=== PATIENT | female | born 1955 | race Caucasian/White ===

== ENCOUNTER 2025-04-24 20:28 | Inpatient (IN) | payer MEDICARE, OTHER ==
[~2025-04-24] VITALS: Ht 170.2 cm; Wt 68.3 kg
[2025-04-24 20:40] VITALS: PULSE 77; RESP 18; O2SAT 96
--- NOTE | 2025-04-24 20:44 | ECG ---
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
--- NOTE | 2025-04-24 20:47 | ED.PDOC ---
HPI (NEURO) HPI Comments HPI: Vitals on scene Temperature: 97.6 Respiratory rate:18 SpO2:96% RA Heart rate:40 Blood pressure:132/80 Past Medical History: Hypothyroidism, osteoporosis, GERD Past Surgical History: Hysterectomy, bilateral oophorectomy, appendectomy, hemorrhoidectomy abdominal plasty, mastopexy, left knee surgery, cholecystect nasreen, left hip surgery, right knee surgery, cardiac ablation, right knee surgery, left foot surgery, total right knee replacement Social History: Denies any Regis: syncope HPI: Poor Historian. Past Medical History: Past Surgical History: REVIEW OF SYSTEMS: CONSTITUTIONAL: Denies acute: fever, diaphoresis, chills, HEAD: Denies acute: headache, photophobia Eyes: Denies acute: Double vision, vision loss, eye pain, eye discharge. EARS: Denies acute: tinnitus, hearing loss, ear discharge, ear pain, THROAT: Denies acute: sore throat, swelling, difficulty swallowing , pain with swallowing, change in voice. NECK: Denies acute: neck pain, neck swelling, stiff neck. HEART: Denies acute : chest pain, palpitations, LUNGS: Denies acute: SOB, wheezing, cough, hemoptysis ABDOMEN: Denies acute: abdominal pain, Nausea, Vomiting, diarrhea, melena , hematemesis, hematochezia SKIN: Denies acute: rash, redness, lesions, itchiness. EXTREMITIES: Denies acute: calf pain, numbness, tingling, weakness, denies pain in extremity. Denies acute: Low back pain. Neuro: Denies acute: focal neurological deficit, motor or sensory focal neurological deficit, tremors, seizure like activity, confusion, , change in mental status, loss of bowel or bladder function, cauda equina like symptoms. : Denies acute: dysuria, hematuria, flank pain, increase in urinary frequency. PSYCH: Denies acute: hallucination, suicidal ideation, homicidal ideation. FEMALE: Denies acute: abnormal vaginal bleeding, foul odor, unusual discharge. PHYSICAL EXAM: General: ----mild----acute distress, awake and alert. Head: normocephalic, atraumatic. No raccoon's eyes, no brand sign. Neck: supple, trachea is midline, no swelling. Throat: Normal phonation. Eyes:, no erythema, no purulent discharge, no proptosis, no icterus. Heart: regular rate, regular rhythm, no significant murmur appreciated. Lungs: no apparent respiratory distress, Able to speak in full sentences. No wheezing, no rhonchi, no crackles. No stridors Clear to auscultation bilaterally. Abdomen: non tender to palpation, non distended, soft, no guarding, no rebound, + bowel sounds. Neuro: Awake, Alert, oriented to name, self, situation, follows commands GCS=15. Speech is normal. Skin: no petechia, no purpura, no cyanosis, non-pale, not jaundice. Lower extremities: --no - Pitting edema no deformity, no focal swelling, no calf TTP. Makes eye contact. moves all four extremities. Face: no apparent facial droop. ED COURSE: DISCLAIMER: This medical document was created using an electronic medical record system with voice recognition software and computerized dictation system. Although this document has been carefully reviewed, there might still be some phonetic and typographical errors. Occasional wrong-word or "sound-alike" substitutions may have occurred due to the inherent limitations of voice recognition software. These areas are purely typographical due to imperfections of the software programs and do not reflect any compromise in the patient's medical care. Please read the chart carefully and recognize, using context, where these substitutions have occurred. 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 Was a procedure done?: No X-Ray, Labs, Meds, VS Vital Signs Date Time Temp Pulse Resp B/P (MAP) Pulse Ox O2 Delivery O2 Flow Rate FiO2 04/24/25 20:31 79 Lab Test 04/24/25 20:45 Range/Units White Blood Count Pending Red Blood Count Pending Hemoglobin Pending Hematocrit Pending Mean Corpuscular Volume Pending Mean Corpuscular Hemoglobin Pending Mean Corpuscular Hemoglobin Concent Pending Red Cell Distribution Width Pending Platelet Count Pending Mean Platelet Volume Pending Neutrophils (%) (Auto) Pending Lymphocytes (%) (Auto) Pending Monocytes (%) (Auto) Pending Basophils (%) (Auto) Pending Neutrophils # (Auto) Pending Lymphocytes # (Auto) Pending Monocytes # (Auto) Pending Sodium Level Pending Potassium Level Pending Chloride Level Pending Carbon Dioxide Level Pending Anion Gap Pending Blood Urea Nitrogen Pending Creatinine Pending Glomerular Filtration Rate Calc Pending BUN/Creatinine Ratio Pending Serum Glucose Pending Lactic Acid Level Pending Calcium Level Pending Total Bilirubin Pending Aspartate Amino Transferase (AST) Pending Alanine Aminotransferase (ALT) Pending Alkaline Phosphatase Pending Troponin I High Sensitivity Pending Total Protein Pending Albumin Pending Time of 1ST Reevaluation: 21:00 Reevaluation 1ST: Unchanged Patient Education/Counseling: Diagnosis, Treatment, Prognosis Family Education/Counseling: No Family Present Departure 1 Departure Time of Disposition: 20:55 Impression: Primary Impression: Syncope and collapse Disposition: 01 HOME / SELF CARE / HOMELESS Condition: Stable Discharged With: Self Critical Care Note Critical Care Time?: No I personally scribed for CARMELITA BARROW DO ([email or web address]) on 04/24/25 at 20:47. Electronically submitted by Shiv Ruiz ([email or web address]). I personally scribed for CARMELITA BARROW DO ([email or web address]) on 04/24/25 at 20:55. Electronically submitted by Shiv Ruiz ([email or web address]). CARMELITA BARROW DO Apr 24, 2025 20:47
[2025-04-24 21:00] LABS: Hematocrit 40.9 % (36.0-46.0); Hemoglobin 13.7 g/dL (12.2-16.2); Mean Corpuscular Hemoglobin 32.2 pg (28.0-32.0); Mean Corpuscular Volume 95.8 fL (80.0-100.0); Nucleated Red Blood Cells % 0.0 %
[2025-04-24] MEDS: SODIUM CHLORIDE 0.9% 1,000 ML IV ONE (21:12)
--- NOTE | 2025-04-24 21:16 | DVH ---
CHEST RADIOGRAPH INDICATION: syncope TECHNIQUE: Single frontal view of the chest was obtained COMPARISON: None FINDINGS: Lungs and pleural spaces are clear. Cardiac silhouette and ricky are within normal limits. Bones and soft tissues demonstrate no significant abnormality. IMPRESSION: No acute disease.
[2025-04-24 21:17] LABS: Alanine Aminotransferase 21 U/L (7-40); Albumin 4.3 g/dL (3.2-4.8); Alkaline Phosphatase 65 U/L (46-116); Anion Gap 12 (5-15); BUN/Creatinine Ratio 32.2 (10.0-20.0); Bilirubin, Total 0.6 mg/dL (0.2-1.0); Calcium 9.3 mg/dL (8.7-10.4); Carbon Dioxide 24 mmol/L (20-31); Chloride 105 mmol/L (98-107); Potassium 4.3 mmol/L (3.5-5.1); Sodium 141 mmol/L (136-145); Total Protein 7.0 g/dL (5.7-8.2)
[2025-04-24 21:35] LABS: Blood Urea Nitrogen 28 mg/dL (9-23); Glucose 109 mg/dL (74-106)
[2025-04-24 22:20] LABS: Urine Protein, UAD Negative (Negative)
[2025-04-25] MEDS: CALCIUM W/VIT D (600MG/400IU) TAB PO ONE (00:28)
[2025-04-25] MEDS: ASPirin-EC 81 mg tab PO ONE (00:28)
--- NOTE | 2025-04-25 01:33 | DVHHPRES ---
History of Present Illness Resident Creating Document: SHIRA CASH RESIDENT History of Present Illness Maryanne Stacy is a 70-year-old female with past medical history of AFlutter S/P ablation in 2019, hypothyroidism, genital herpes, GERD, hiatal hernia, osteoporosis, atrophic vaginitis who was brought to the hospital by paramedics following an episode of syncope. Patient states that [facility] when she blacked out and fell down. She reports that she did not hit her head. She reports of multiple episodes of syncope since her 20s. She reports of 6 syncopal episodes this past year, usually while standing up from a sitting position. patient has been on a weight loss diet, is a vegetarian and is on phentermine for the past 6 months. She reports of no tongue biting or confusion after the episode. PMHx:AFlutter S/P ablation in 2019, hypothyroidism, genital herpes, GERD, hiatal hernia, osteoporosis, atrophic vaginitis PSHx: Hysterectomy, appendectomy, hemorrhoidectomy, hip and knee arthroscopy, cardiac ablation Family history: nonrelevant Social history: denies smoking, alcohol, drug use Home medication: Synthroid, vaginal estrogen, valacyclovir, alendronate, phentermine, pantoprazole, aspirin Allergic history: no known allergies Review of Systems Review of Systems General: patient denies fever, fatigue, weaknes, sweating, any recent changes in appetite and weight HEENT: No headaches, visiual changes, hearing loss, tinnitus, nasal congestion and discharge, and sore throat. Cardiovascular: Denies chest pain, palpitations, dyspnea on exertion, orthopnea, or claudication. Respiratory: No cough, and wheezing. Gastrointestinal: Denies nausea, vomiting, dysphagia, odynophagia, heartburn, abdominal pain, flatulence, bloating, diarrhea, constipation, change in stool, or blood in stool. Genitourinary: No dysuria, hematuria, discharge, frequency, urgency, nocturia, incontinence, and urinary retention. Endocrine: No heat or cold intolerance, polydipsia, polyuria, and polyphagia. Neurological: No dizziness, extremity weakness and numbness, tremors, gait disturbance, seizures, and memory impairment. Psychiatric: Denies depression, anxiety,or insomnia. Musculoskeletal: Denies neck pain, stiffness and swelling, back pain, muscle weakness, joint pain, stiffness, swelling, or limited range of motion. Skin: No rashes, itching, skin lesion, changes in hair, nail, skin texture and breast. Hematologic/Lymphatic: Denies easy bruising, bleeding tendencies, or lymph node enlargement. Allergies: Coded Allergies: Iodinated Diagnostic Agents (Verified Allergy, Unknown, 04/25/25) Penicillins (Verified Allergy, Unknown, 04/25/25) Medications Current Medications Medications Dose Ordered Sig/Andreas Route Start Time Stop Time Status Last Admin Dose Admin Enoxaparin Sodium 40 mg DAILY SC 04/25/25 10:00 Levothyroxine Sodium 88 mcg QAM@0600 PO 04/25/25 06:00 Pantoprazole Sodium 40 mg DAILY IV 04/25/25 10:00 Exam Vital Signs Vital Signs Date Time Temp Pulse Resp B/P (MAP) Pulse Ox O2 Delivery O2 Flow Rate FiO2 04/24/25 21:09 77 132/57 81 136/68 85 147/70 04/24/25 21:06 97.4 18 98 97.4 04/24/25 20:40 Room Air* 0 21 Exam General Appearance: Alert, Oriented X3, Cooperative, No acute distress HEENT: Atraumatic, PERRLA, EOMI, Mucous membrane moist/pink Respiratory: Clear to auscultation, Normal air movement Cardiovascular: Regular rate, Normal S1, Normal S2, No murmurs, no chest wall tenderness Abdominal: Normal bowel sounds, Soft, No tenderness, No hepatospenomegaly, No masses Extremities: No clubbing, No cyanosis, No edema, Normal pulses, No tenderness/ swelling Skin: No rashes, No breakdown, No significant lesion Neuro: Normal gait, Normal speech, Strength at 5/5 X4 ext, Normal tone, Sensation intact, Cranial nerves 3-12 NL, Reflexes 2+ Psych/Mental Status: Mental status NL, Mood NL Labs/Xrays Labs Test 04/24/25 23:48 04/24/25 21:51 04/24/25 20:45 Range/Units Troponin I High Sensitivity 4 </=34 ng/L Urine Color Colorless Yellow Urine Clarity Clear Clear Urine pH 6.5 5.0-9.0 Urine Specific [place] 1.013 1.001-1.035 Urine Protein Negative Negative Urine Ketones 1+ H Negative Urine Blood Negative Negative /uL Urine Nitrite Negative Negative Urine Bilirubin Negative Negative Urine Urobilinogen Normal Negative mg/dL Urine Leukocyte Esterase Negative Negative /uL Urine RBC 1 0 - 4 /hpf Urine Microscopic WBC 1 0-5 /HPF Urine Squamous Epithelial Cells Few <5 /hpf Urine Bacteria None seen None Seen /hpf Urine Mucus Few None Seen Urine Glucose Normal Normal mg/dL White Blood Count 4.3 L 4.4-10.8 10^3/uL Red Blood Count 4.27 4.0-5.20 10^6/uL Hemoglobin 13.7 12.2-16.2 g/dL Hematocrit 40.9 36.0-46.0 % Mean Corpuscular Volume 95.8 80.0-100.0 fL Mean Corpuscular Hemoglobin 32.2 H 28.0-32.0 pg Mean Corpuscular Hemoglobin Concent 33.6 32.0-36.0 g/dL Red Cell Distribution Width 13.6 11.8-14.3 % Platelet Count 284 140-450 10^3/uL Mean Platelet Volume 7.0 6.9-10.8 fL Neutrophils (%) (Auto) 49.0 37.0-80.0 % Lymphocytes (%) (Auto) 35.1 10.0-50.0 % Monocytes (%) (Auto) 10.3 0.0-12.0 % Eosinophils (%) (Auto) 4.6 0.0-7.0 % Basophils (%) (Auto) 1.0 0.0-2.0 % Neutrophils # (Auto) 2.1 1.6-8.6 10 ^3/uL Lymphocytes # (Auto) 1.5 0.4-5.4 10 ^3/uL Monocytes # (Auto) 0.4 0-1.3 10 ^3/uL Eosinophils # (Auto) 0.2 0-0.8 10 ^3/uL Basophils # (Auto) 0 0-0.2 10 ^3/uL Nucleated Red Blood Cells 0.0 % Sodium Level 141 136-145 mmol/L Potassium Level 4.3 3.5-5.1 mmol/L Chloride Level 105 98-107 mmol/L Carbon Dioxide Level 24 20-31 mmol/L Anion Gap 12 5-15 Blood Urea Nitrogen 28 H 9-23 mg/dL Creatinine 0.87 0.550-1.02 mg/dL Glomerular Filtration Rate Calc 71 >90 mL/min BUN/Creatinine Ratio 32.2 H 10.0-20.0 Serum Glucose 109 H 74-106 mg/dL Lactic Acid Level 1.2 0.4-2.0 mmol/L Calcium Level 9.3 8.7-10.4 mg/dL Total Bilirubin 0.6 0.2-1.0 mg/dL Aspartate Amino Transferase (AST) 28 13-40 U/L Alanine Aminotransferase (ALT) 21 7-40 U/L Alkaline Phosphatase 65 46-116 U/L Total Protein 7.0 5.7-8.2 g/dL Albumin 4.3 3.2-4.8 g/dL SEPSIS Sepsis Screen Date sepsis recognized/suspect: Apr 24, 2025 Time Sepsis recognized/suspect: 2124 Recent Procedure: No On Antibiotic Therapy: No Respiratory Rate >20: No Heart Rate >90: No Temp<36 C (96.8 F) or >38.3 C: No SBP <90 or MAP <65 mmHG: No New Acute Mental Status Change: No Is the patient on CPAP, BIPAP,: No Physician Orders Skid Wrapper (04/24/25 ) Chest Portable (04/24/25 20:35) Orthostatic Vital Signs (04/24/25 ) Admit (04/24/25 23:44) Oxygen By Nasal Cannula (04/24/25 23:44) Stat Ekg For Chest Pain (04/24/25 23:44) Notify Md Of Changes From Base (04/24/25 23:44) Soil Conservation Teacher For 24 Hours (04/24/25 23:44) Emergency Dysrhythmia Protocol (04/24/25 23:44) Rhythm Strips Once Every Shift (04/24/25 23:44) Folate (Folic Acid) (04/24/25 23:52) Vitamin B12 (04/24/25 23:52) Orthostatic Vital Signs (04/24/25 ) Echo 2d Mode Cardiac Dop (04/24/25 23:52) Regular Diet (04/25/25 Breakfast) Enoxaparin Sodium (Lovenox) (04/25/25 10:00) Levothyroxine Tablet (Synthroid Tablet) (04/25/25 06:00) Pantoprazole (Protonix) (04/25/25 10:00) Hemoglobin A1c (04/25/25 00:01) Thyroid Stimulating Hormone (04/25/25 00:01) Complete Blood Count (04/25/25 04:00) Comprehensive Metabolic Panel (04/25/25 04:00) Lipid Panel (04/25/25 04:00) Vital Signs Date Time Temp Pulse Resp B/P (MAP) Pulse Ox O2 Delivery O2 Flow Rate FiO2 04/24/25 21:09 77 132/57 81 136/68 85 147/70 04/24/25 21:06 97.4 77 18 132/77 (95) 98 97.4 81 136/68 (90) 85 147/70 (95) 04/24/25 20:40 77 18 96 Room Air* 0 21 04/24/25 20:31 79 04/24/25 20:30 97.6 84 18 155/80 96 97.6 Laboratory Tests Test 04/24/25 20:45 Lactic Acid Level 1.2 mmol/L (0.4-2.0) White Blood Count 4.3 10^3/uL (4.4-10.8) L Medications Medications Dose Ordered Sig/Andreas Route Start Time Stop Time Status Last Admin Dose Admin Aspirin 81 mg ONCE ONCE PO 04/25/25 00:00 04/25/25 00:19 DC 04/25/25 00:28 81 MG Calcium/Vitamin D 1 tab ONCE ONCE PO 04/25/25 00:00 04/25/25 00:19 DC 04/25/25 00:28 1 TAB Sodium Chloride 1,000 ml @ 1,000 mls/hr Q1H ONCE IV 04/24/25 20:45 04/24/25 21:44 DC 04/24/25 21:12 1,000 MLS/HR Assessment/Plan Assessment/Plan Assessment and plan Syncope, orthostatic/reflux History of atrial flutter status post ablation Orthostatic vital signs Echo TSH, magnesium Telemetry admit Cardiology consult as per primary team IV fluids CT head Hypothyroidism Continue Synthroid Follow TSH Osteoporosis Continue calcium Held alendronate Genital herpes Continue valacyclovir GERD Hiatal hernia IV Protonix Atrophic vaginitis Continue vaginal estrogen PUD prophylaxis: protonix 40mg DVT prophylaxis: Levonox 40mg Barriers to discharge: Medical diagnosis and management in progress. Patient lives with family. Independent for ADL. PCP: Dr. Otero Specialist Relevent To Admission: Cardiology Case discussed with Dr. Reyes. Code Status: Full Code. Complex patient care discussion needed. Spend total 35 minutes for bedside assessment, case discussion and management. Plan discussed with: Patient My Orders Orders - SHIRA CASH Procedure Category Date Status Time Folate (Folic Acid) LAB 04/24/25 Logged 23:52 Vitamin B12 LAB 04/24/25 Logged 23:52 Orthostatic Vital ED NURSING 04/24/25 Transmitted Signs Echo 2d Mode Cardiac US 04/24/25 Logged DOP 23:52 Regular Diet DIET 04/25/25 Transmitted Breakfast Enoxaparin Sodium PHA 04/25/25 In Process (Lovenox) 10:00 Levothyroxine Tablet PHA 04/25/25 In Process (Synthroid Tablet) 06:00 Pantoprazole PHA 04/25/25 In Process (Protonix) 10:00 Hemoglobin A1c LAB 04/25/25 Logged 00:01 Thyroid Stimulating LAB 04/25/25 Logged Hormone 00:01 Complete Blood Count LAB 04/25/25 Logged 04:00 Comprehensive LAB 04/25/25 Logged Metabolic Panel 04:00 Lipid Panel LAB 04/25/25 Logged 04:00 Visit Coding STANDARD RES Billing Provider: CRISSY REYES MD Date of Service if different f: Apr 24, 2025 Common Visit Codes: [id number] INP/OBS CARE (HIGH) Secondary Visit Codes: [id number] CARE PLAN 30 MINUTES SHIRA CASH Apr 25, 2025 01:32
[2025-04-25] MEDS: ALPRAZolam 0.5 MG TAB PO ONE (01:50)
[2025-04-25] MEDS: SODIUM CHLORIDE 0.9% 500 ML IV ONE (02:46)
--- NOTE | 2025-04-25 02:53 | DVH ---
EXAM: CT HEAD WITHOUT CONTRAST INDICATION: Status post mechanical fall TECHNIQUE: CT of the head without intravenous contrast. Radiation Dose : 1. Head: CT Dose: CTDI volume is 49.51 mGy. Dose-length product is 793.88 mGy*cm The dose indicators for CT are the volume Computed Tomography (CT) Dose Index (CTDIvol) and the Dose Length Product (DLP), and are measured in units of mGy and mGy-cm, respectively. These indicators are not patient dose, but values generated from the CT scanner acquisition factors. The report includes radiation exposure data for exposures received during this examination. COMPARISON: None FINDINGS: There is no evidence of acute intracranial hemorrhage, extra-axial collection, mass effect, midline shift, herniation or hydrocephalus. The ventricles, sulci and cisterns are age appropriate. The vanegas-white differentiation is intact. Patchy periventricular and subcortical white matter hypoattenuation is nonspecific but may be related to small vessel ischemic disease. The visualized paranasal sinuses and mastoid air cells are clear. The surrounding soft tissues and osseous structures are unremarkable. IMPRESSION: 1. No acute intracranial abnormality. Radiation optimization: All CT scans at this facility use at least one of these dose optimization techniques: automated exposure control mA and/or kV adjustment per patient size (includes targeted exams where dose is matched to clinical indication) or iterative reconstruction.
[2025-04-25] MEDS ORDERED: LEVO-177 PO (04:38)
[2025-04-25] MEDS ORDERED: ALEN70TA74 PO (04:38)
[2025-04-25] MEDS ORDERED: ESTR0.1C5 VG (04:38)
[2025-04-25] MEDS ORDERED: ALPR0.5T8 PO (04:39)
[2025-04-25] MEDS ORDERED: ASPI-498 PO (04:39)
[2025-04-25] MEDS ORDERED: PANT40TA57 PO (04:39)
[2025-04-25] MEDS ORDERED: VALA-30 PO (04:39)
[2025-04-25] MEDS ORDERED: [UNRECOGNIZED DRUG - CODE] PO (04:39)
[2025-04-25 05:00] VITALS: BP 136/74; PULSE 80; RESP 16; TEMP 97.7; O2SAT 99
[2025-04-25] MEDS: LEVOTHYROXINE SODIUM 88 MCG TAB PO SCH (06:27)
[2025-04-25 08:00] VITALS: PULSE 86; RESP 16; O2SAT 97
[2025-04-25 09:00] VITALS: BP 131/69; PULSE 95; RESP 16; TEMP 97.5; O2SAT 97
[2025-04-25] MEDS: ENOXAPARIN SOD 40 MG/0.4 ML SYRINGE SC SCH (10:00)
[2025-04-25] MEDS: PANTOPRAZOLE 40 MG/10 ML VIAL INJ IV SCH (10:22)
[2025-04-25 11:36] LABS: Hematocrit 39.3 % (36.0-46.0); Hemoglobin 13.4 g/dL (12.2-16.2); Mean Corpuscular Hemoglobin 32.5 pg (28.0-32.0); Mean Corpuscular Volume 95.5 fL (80.0-100.0); Nucleated Red Blood Cells % 0.0 %
--- NOTE | 2025-04-25 11:48 | DVHINCON2 ---
Date Seen: Apr 25, [address] Hunt Reason for Consultation Syncope and history of atrial flutter History of Present Illness Patient is a 70-year-old female who was brought to the hospital via EMS after an episode of syncope. Patient reportedly was at the vet clinic with her pet, she picked up her bed and suddenly felt dizzy and her vision closing in and then blacked out and fell down. Patient did have urinary incontinence, episode was witnessed and no abnormal movements were reported no tongue bites, no postictal confusion. Patient reports to have recurrent episodes of dizziness since she was young but usually she is able to hold onto something and sit down and feels better after that but yesterday she blacked out and could not hold onto something and fell down. EMS were called and patient was reported to have heart rate of 38 beats per minute at the site and was brought to the hospital further evaluation. Last episode of syncope according with the patient was around 7 years ago. Patient does have history of atrial flutter status post ablation done in 2019, hypothyroidism, GERD, hiatal hernia, atrophic vaginitis, genital herpes. In the hospital showed sinus rhythm without any ST or T-wave changes. Troponin levels were within normal limits. 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 Past Medical History As per HPI Past Surgical History Hysterectomy, appendectomy, hemorrhoidectomy, hip and knee arthroscopy, cardiac ablation Family History: Cerebrovascular accident (CVA) G8 MOTHER FH: breast cancer G8 MOTHER FH: leukemia G8 FATHER Family History Significant family history Social History Denies smoking, alcohol, drug use Allergies: Coded Allergies: Iodinated Diagnostic Agents (Verified Allergy, Unknown, 04/25/25) Penicillins (Verified Allergy, Unknown, 04/25/25) Home Meds Reported Medications Alprazolam (Alprazolam) 0.5 Mg Tab, 1 TAB PO Q8HPRN PRN for anxiety 04/25/25 Aspirin (ASPIRIN 81) 81 Mg Tab, 81 MG PO DAILY, TAB 04/25/25 Pantoprazole Sodium Sesquihydr (Pantoprazole Sodium Dr) 40 Mg Tab, 1 TAB PO QAM 04/25/25 Phentermine HCl (Phentermine Hydrochloride) 37.5 Mg Tab, 0.25 TAB PO DAILY 04/25/25 Valacyclovir HCl (Valacyclovir Hydrochlorid) 500 Mg Tab, 1 TAB PO DAILY 04/25/25 Alendronate Sodium (Alendronate Sodium) 70 Mg Tab, 1 TAB PO QWEEKLY 04/25/25 Estradiol Vaginal (Estradiol) 0.1 Mg/Gm Cre, 0.5 GM VG QWEEKLY 04/25/25 Levothyroxine Sodium (Levothyroxine Sodium) 88 Mcg Tab, 1 TAB PO QAM 04/25/25 Current Medications Current Medications Medications (Trade) Dose Ordered Sig/Andreas Route PRN Reason Start Time Stop Time Status Last Admin Enoxaparin Sodium (Lovenox) 40 mg DAILY SC 04/25/25 10:00 Levothyroxine Sodium (Synthroid Tablet) 88 mcg QAM@0600 PO 04/25/25 06:00 04/25/25 06:27 Pantoprazole Sodium (Protonix) 40 mg DAILY IV 04/25/25 10:00 04/25/25 10:22 Review of Systems Patient seen and examined with the bedside No episode of dizziness and she has been in the hospital Denies shortness of breath, chest pain, numbness or tingling in her extremities, no motor weakness Vital Signs Vital Signs Date Time Temp Pulse Resp B/P (MAP) Pulse Ox O2 Delivery O2 Flow Rate FiO2 04/25/25 05:00 97.7 80 16 136/74 (94) 99 97.7 04/25/25 04:23 Room Air* 0 21 Physical Exam Skin - Patients skin is warm and dry. HEENT - normocephalic, atraumatic, moist mucous membranes, no scleral icterus, no conjunctival pallor. Neck - full ROM, no LAD, no JVD Pulmonary - B/L clear breath sounds without any wheezing, rales or stridor cardiovascular - regular S1,S2 with a loud S2 heard, no additional sounds or murmurs heard. peripheral pulses normal radial 2+, pedal 2+. No extremity edema GI - soft, nontender abdomen. no hepatospleenomegaly. Bowel sounds normoactive Neurological - Patient is A/O X 4 . Bilateral upper extremity strength 5/5, bilateral lower extremity strength 5/5, no facial droop, normal speech, no tremor, no sensory deficiets. Labs/Diagnostic Data Labs Test 04/24/25 23:48 04/24/25 21:51 04/24/25 20:45 Range/Units Troponin I High Sensitivity 4 </=34 ng/L Urine Color Colorless Yellow Urine Clarity Clear Clear Urine pH 6.5 5.0-9.0 Urine Specific [place] 1.013 1.001-1.035 Urine Protein Negative Negative Urine Ketones 1+ H Negative Urine Blood Negative Negative /uL Urine Nitrite Negative Negative Urine Bilirubin Negative Negative Urine Urobilinogen Normal Negative mg/dL Urine Leukocyte Esterase Negative Negative /uL Urine RBC 1 0 - 4 /hpf Urine Microscopic WBC 1 0-5 /HPF Urine Squamous Epithelial Cells Few <5 /hpf Urine Bacteria None seen None Seen /hpf Urine Mucus Few None Seen Urine Glucose Normal Normal mg/dL White Blood Count 4.3 L 4.4-10.8 10^3/uL Red Blood Count 4.27 4.0-5.20 10^6/uL Hemoglobin 13.7 12.2-16.2 g/dL Hematocrit 40.9 36.0-46.0 % Mean Corpuscular Volume 95.8 80.0-100.0 fL Mean Corpuscular Hemoglobin 32.2 H 28.0-32.0 pg Mean Corpuscular Hemoglobin Concent 33.6 32.0-36.0 g/dL Red Cell Distribution Width 13.6 11.8-14.3 % Platelet Count 284 140-450 10^3/uL Mean Platelet Volume 7.0 6.9-10.8 fL Neutrophils (%) (Auto) 49.0 37.0-80.0 % Lymphocytes (%) (Auto) 35.1 10.0-50.0 % Monocytes (%) (Auto) 10.3 0.0-12.0 % Eosinophils (%) (Auto) 4.6 0.0-7.0 % Basophils (%) (Auto) 1.0 0.0-2.0 % Neutrophils # (Auto) 2.1 1.6-8.6 10 ^3/uL Lymphocytes # (Auto) 1.5 0.4-5.4 10 ^3/uL Monocytes # (Auto) 0.4 0-1.3 10 ^3/uL Eosinophils # (Auto) 0.2 0-0.8 10 ^3/uL Basophils # (Auto) 0 0-0.2 10 ^3/uL Nucleated Red Blood Cells 0.0 % Sodium Level 141 136-145 mmol/L Potassium Level 4.3 3.5-5.1 mmol/L Chloride Level 105 98-107 mmol/L Carbon Dioxide Level 24 20-31 mmol/L Anion Gap 12 5-15 Blood Urea Nitrogen 28 H 9-23 mg/dL Creatinine 0.87 0.550-1.02 mg/dL Glomerular Filtration Rate Calc 71 >90 mL/min BUN/Creatinine Ratio 32.2 H 10.0-20.0 Serum Glucose 109 H 74-106 mg/dL Lactic Acid Level 1.2 0.4-2.0 mmol/L Calcium Level 9.3 8.7-10.4 mg/dL Total Bilirubin 0.6 0.2-1.0 mg/dL Aspartate Amino Transferase (AST) 28 13-40 U/L Alanine Aminotransferase (ALT) 21 7-40 U/L Alkaline Phosphatase 65 46-116 U/L Total Protein 7.0 5.7-8.2 g/dL Albumin 4.3 3.2-4.8 g/dL Assessment Syncope,probable POTS, rule out structural cardiac abnormality h/o atrial flutter status post ablation h/o hypothyroidism GERD, hiatal hernia Plan/Recommendation - Orthostatic vitals laying down BP 137/72, HR 77, standing after 1 min 121/75 H R 105, standing after 3 mins 126/80 HR 109 , HR after 6-7 mins of standing in 110-115, indicative of POTS, aligning with patient's h/o recurrent postural dizziness since her 20s - TSH, free T4 and total T3 within normal limits - on telemetry, few episodes of sinus tachy upto 130-140 - ECG showed sinus rhythm - echo pending - encouraged increased fluid intake atleast 2L/min, increased salt intake Goals of care discussed with the patient for over 18 minutes. Plan discussed with Dr. Casanova Plan discussed with: Patient, Other (RN) NYHA Physical activity limitations: NA Date of Service: Apr 25, 2025 Billing Provider: PAULINO CASANOVA Sr., MD Cardiology Common Codes: [id number] INP/OBS CARE (High) ROEL VICENTE RESIDENT Apr 25, 2025 11:48
[2025-04-25 11:57] LABS: Alanine Aminotransferase 20 U/L (7-40); Albumin 4.1 g/dL (3.2-4.8); Alkaline Phosphatase 62 U/L (46-116); Anion Gap 11 (5-15); BUN/Creatinine Ratio 22.1 (10.0-20.0); Blood Urea Nitrogen 15 mg/dL (9-23); Calcium 9.3 mg/dL (8.7-10.4); Carbon Dioxide 25 mmol/L (20-31); Cholesterol 130 mg/dL (< 200); HDL Cholesterol 60 mg/dL (40-59); Magnesium 2.2 mg/dL (1.6-2.6); Potassium 4.0 mmol/L (3.5-5.1); Sodium 144 mmol/L (136-145); Total Protein 6.6 g/dL (5.7-8.2); Triglycerides 36 mg/dL (< 150)
[2025-04-25 11:58] LABS: Bilirubin, Total 0.6 mg/dL (0.2-1.0)
[2025-04-25 12:02] LABS: Chloride 108 mmol/L (98-107); Glucose 116 mg/dL (74-106)
--- NOTE | 2025-04-25 15:52 | DVHPNRES ---
Progress Note Date Seen: Apr 25, 2025 Resident Creating Document: ANNIE GUILLORY RESIDENT Medical Necessity Reason Pt with a Central, PICC or Fol: No Subjective Review of Systems Maryanne Stacy is a 70-year-old female with past medical history of AFlutter S/P ablation in 2019, hypothyroidism, genital herpes, GERD, hiatal hernia, osteoporosis, atrophic vaginitis who was brought to the hospital by paramedics following an episode of syncope. Patient states that [facility] when she blacked out and fell down. She reports that she did not hit her head. She reports of multiple episodes of syncope since her 20s. She reports of 6 syncopal episodes this past year, usually while standing up from a sitting position. patient has been on a weight loss diet, is a vegetarian and is on phentermine for the past 6 months. She reports of no tongue biting or confusion after the episode. She recently had an EGD done, which revealed hiatal hernia, gastritis. Last colonoscopy was done in 2019, which was unremarkable. The patient was seen and examined at bedside this morning. She reports feeling completely fine. No new complaints reported. PMHx:AFlutter SVT, atrial flutter, S/P ablation in 2019, hypothyroidism, genital herpes, GERD, hiatal hernia, osteoporosis, atrophic vaginitis PSHx: Vaginal hysterectomy, appendectomy, hemorrhoidectomy, hip and knee arthroscopy, cardiac ablation Family history: nonrelevant Social history: denies smoking, alcohol, drug use Home medication: Synthroid, vaginal estrogen, valacyclovir, alendronate, phentermine, pantoprazole, aspirin Allergic history: no known allergies Objective vital signs Vital Sign Date Time Temp Pulse Resp B/P (MAP) Pulse Ox O2 Delivery O2 Flow Rate FiO2 04/25/25 08:00 86 04/25/25 08:00 16 97 Room Air* 0 21 04/25/25 05:00 97.7 136/74 (94) 97.7 Total Intake and Output 04/24/25 04/24/25 04/25/25 15:00 23:00 07:00 Intake Total 1000 ml 500 ml Balance 1000 ml 500 ml medications Current Medications Medications Dose Ordered Sig/Andreas Route Start Time Stop Time Status Last Admin Dose Admin Enoxaparin Sodium 40 mg DAILY SC 04/25/25 10:00 Pantoprazole Sodium 40 mg DAILY IV 04/25/25 10:00 04/25/25 10:22 40 MG Aspirin 81 mg DAILY PO 04/26/25 10:00 Levothyroxine Sodium 88 mcg QAM PO 04/26/25 07:00 Patient Own Medication 1 DAILY PO 04/26/25 10:00 Examination Pt is lying on bed General Appearance: Alert, Oriented X3, Cooperative, Mild distress HEENT: Atraumatic, Mucous membranes moist/pink Respiratory: Clear to auscultation, Normal air movement, No added sounds Cardiovascular: Regular rate, Normal S1, Normal S2, No murmurs Abdominal/ : Active bowel sounds, Soft, no distention, no tenderness Extremities: No edema, Normal pulses, No tenderness/swelling Skin: No Significant rash, except past surgical scars Neuro: Normal speech, sensorimotor deficits none Psych/Mental Status: Mental status NL, Mood NL Nurse was there as contact center associate during examination laboratory and microbiology Laboratory Tests 04/25/25 11:23 Test 04/25/25 11:23 Range/Units Serum Glucose 116 H 74-106 mg/dL Labs and/or images reviewed: Labs reviewed by me, Image(s) reviewed by me Problem List/Assessment/Plan Problem List/Assessment/Plan Syncope, orthostatic/reflux History of atrial flutter status post ablation Orthostatic vital signs negative Echo: Completed, results pending TSH: WNL, free T3 and T4 pending Telemetry admit Cardiology consult IV fluid CT head No acute intracranial abnormality. CXR:No acute disease Magnesium 2.2, potassium 4 Aspirin 81 mg ordered Hypothyroidism Continue Synthroid TSH WNL Osteoporosis Continue calcium Held alendronate Genital herpes Continue valacyclovir GERD Hiatal hernia IV Protonix Atrophic vaginitis Continue vaginal estrogen PUD prophylaxis: protonix 40mg DVT prophylaxis: Lovenox 40mg Barriers to discharge: Medical diagnosis and management in progress. Patient lives with family. Independent for ADL. PCP: Dr. Otero Specialist Relevent To Admission: Cardiology Case discussed with Dr Friend Code Status: Full Code. Complex patient care discussion needed. Spend total 35 minutes for bedside assessment, case discussion and management Plan discussed with: Patient, Daughter (RN), Other My Orders My Orders Orders - ANNIE GUILLORY RESIDENT Procedure Category Date Status Time * Cardiology Consult CONS 04/25/25 Transmitted 11:03 Aspirin Enteric PHA 04/26/25 In Process Coated Tablet 10:00 Levothyroxine Tablet PHA 04/26/25 In Process (Synthroid Tablet) 07:00 Patients Own PHA 04/26/25 In Process Medication 10:00 Patients Own PHA 04/25/25 In Process Medication 17:00 Visit Coding STANDARD RES Billing Provider: LILIANA FRIEND MD Date of Service if different f: Apr 25, 2025 Common Visit Codes: [id number] INP/OBS CARE(HIGH) ANNIE GUILLORY RESIDENT Apr 25, 2025 15:52 LILIANA FRIEND MD Apr 26, 2025 19:47
[2025-04-25 16:12] LABS: Free T4 (Free Thyroxine) 1.46 ng/dL (0.89-1.76)
[2025-04-25] MEDS: VALACYCLOVIR 500 MG TABLET PO ONE (17:27)
[2025-04-25 18:37] VITALS: BP 143/71; PULSE 80; RESP 16; TEMP 99.1; O2SAT 97
[2025-04-25 20:00] VITALS: PULSE 74; RESP 16; O2SAT 97
[2025-04-25 21:00] VITALS: BP 117/73; PULSE 93; RESP 18; TEMP 97.8; O2SAT 99
[2025-04-26 01:00] VITALS: BP 123/68; PULSE 78; RESP 16; TEMP 98.1; O2SAT 96
[2025-04-26] MEDS: ACETAMINOPHEN 325 MG TAB PO ONE (04:57)
[2025-04-26 05:00] VITALS: BP 121/74; PULSE 93; RESP 18; TEMP 98; O2SAT 97
[2025-04-26 06:07] LABS: Hematocrit 39.5 % (36.0-46.0); Hemoglobin 13.4 g/dL (12.2-16.2); Mean Corpuscular Hemoglobin 32.5 pg (28.0-32.0); Mean Corpuscular Volume 95.9 fL (80.0-100.0); Nucleated Red Blood Cells % 0.0 %
[2025-04-26 06:32] LABS: Alanine Aminotransferase 19 U/L (7-40); Alkaline Phosphatase 60 U/L (46-116); Anion Gap 10 (5-15); BUN/Creatinine Ratio 17.7 (10.0-20.0); Blood Urea Nitrogen 11 mg/dL (9-23); Calcium 8.9 mg/dL (8.7-10.4); Carbon Dioxide 24 mmol/L (20-31); Glucose 87 mg/dL (74-106); Potassium 3.6 mmol/L (3.5-5.1); Sodium 143 mmol/L (136-145); Total Protein 6.4 g/dL (5.7-8.2)
[2025-04-26 06:33] LABS: Albumin 4.0 g/dL (3.2-4.8); Bilirubin, Total 0.7 mg/dL (0.2-1.0)
[2025-04-26 06:35] LABS: Chloride 109 mmol/L (98-107)
[2025-04-26] MEDS: LEVOTHYROXINE SODIUM 88 MCG TAB PO SCH (07:22)
[2025-04-26 08:00] VITALS: RESP 18; O2SAT 98
[2025-04-26 08:42] VITALS: BP_SYST 109; BP_SYST 110; BP_SYST 97; BP_DIAS 44; BP_DIAS 50; BP_DIAS 60; PULSE 104; PULSE 86; PULSE 96; RESP 18; TEMP 97.7; O2SAT 98
[2025-04-26] MEDS: ASPirin-EC 81 mg tab PO SCH (09:37)
[2025-04-26] MEDS: VALACYCLOVIR 500 MG TABLET PO SCH (09:38)
[2025-04-26 12:27] VITALS: BP 119/42; PULSE 78; RESP 20; TEMP 98; O2SAT 96
--- NOTE | 2025-04-26 12:45 | DVHPN2 ---
Progress Note Date Seen: Apr 26, 2025 Resident Creating Document: YVESMARIANNAROEL RESIDENT Medical Necessity Reason Pt with a Central, PICC or Fol: No Subjective Review of Systems Patient denied any episode of dizziness or loss of consciousness Telemetry showed episodes of tachycardia in the 130s Blood pressure has been stable Objective vital signs Vital Sign Date Time Temp Pulse Resp B/P (MAP) Pulse Ox O2 Delivery O2 Flow Rate FiO2 04/26/25 12:27 98.0 78 20 119/42 (67) 96 98.0 04/26/25 08:00 Room Air* 0 21 Total Intake and Output 04/25/25 04/25/25 04/26/25 15:00 23:00 07:00 Intake Total 1080 ml 500 ml Balance 1080 ml 500 ml medications Current Medications Medications Dose Ordered Sig/Andreas Route Start Time Stop Time Status Last Admin Dose Admin Enoxaparin Sodium 40 mg DAILY SC 04/25/25 10:00 Pantoprazole Sodium 40 mg DAILY IV 04/25/25 10:00 04/26/25 09:36 40 MG Aspirin 81 mg DAILY PO 04/26/25 10:00 04/26/25 09:37 81 MG Levothyroxine Sodium 88 mcg QAM PO 04/26/25 07:00 04/26/25 07:22 88 MCG Patient Own Medication 1 DAILY PO 04/26/25 10:00 04/26/25 09:38 1 Examination Skin - Patients skin is warm and dry. HEENT - normocephalic, atraumatic, moist mucous membranes, no scleral icterus, no conjunctival pallor. Neck - full ROM, no LAD, no JVD Pulmonary - B/L clear breath sounds without any wheezing, rales or stridor cardiovascular - regular S1,S2 no additional sounds or murmurs heard. peripheral pulses normal radial 2+, pedal 2+. No extremity edema GI - soft, nontender abdomen. no hepatospleenomegaly. Bowel sounds normoactive Neurological - Patient is A/O X 4 . Bilateral upper extremity strength 5/5, bilateral lower extremity strength 5/5, no facial droop, normal speech, no tremor, no sensory deficiets. laboratory and microbiology Laboratory Tests 04/26/25 05:36 Test 04/26/25 05:36 Range/Units Serum Glucose 87 74-106 mg/dL Problem List/Assessment/Plan Problem List/Assessment/Plan Syncope,probable POTS, rule out structural cardiac abnormality h/o atrial flutter status post ablation h/o hypothyroidism GERD, hiatal hernia Plan/Recommendation - Orthostatic vitals laying down BP 137/72, HR 77, standing after 1 min 121/75 HR 105, standing after 3 mins 126/80 HR 109 , HR after 6-7 mins of standing in 110-115, indicative of POTS, aligning with patient's h/o recurrent postural dizziness since her 20s - TSH, free T4 and total T3 within normal limits - on telemetry, few episodes of sinus tachycardia upto 130-140 - ECG showed sinus rhythm - echo LVEF nornmal, normal valves - encouraged increased fluid intake atleast 2L/min, increased salt intake Since patient has h/o atrial flutter s/p ablation, we recommend outpatient follow up for a possible loop recorder. No further inpatinet cardiac workup needed. Goals of care discussed with the patient for over 18 minutes. Plan discussed with Dr. Casanova Plan discussed with: Patient ROEL VICENTE RESIDENT Apr 26, 2025 12:45
--- NOTE | 2025-04-26 13:27 | DVHSR ---
APPROVED REPORT EXAM: Two-dimensional and M-mode echocardiogram with Doppler and color Doppler. Blood Pressure: 136/74 mmHg INDICATION RULE OUT STRUCTURAL HEART DISEASE RISK FACTORS Height: 5'7", Weight: 150 DIMENSIONS LVDd 3.9 (3.8-5.7cm) LA (2D) 3.5 (1.9-4.0cm) Aortic Root 3.4 (2.0-3.7cm) LVDs 2.4 (2.5-4.0cm) LA (MM) (1.9-4.0cm) Aortic Cusp Exc 1.7 (1.5-2.0cm) EF (%) 68.0 (55-70%) Rt. Atrium 3.2 (1.9-4.0cm) Asc. Aorta 3.4 cm IVSd 0.7 (0.7-1.1cm) RV (D) 3.6 (1.8-2.4cm) PWd 0.7 (0.7-1.1cm) Mitral Valve Mitral Mitral Stenosis E wave 0.62m/s MV Mean GR. mmHg A wave 0.99m/s MV Peak GR. mmHg E/A ratio 0.6 2D MVA cm2 DECEL Time 228ms PRESS 1/2 Time ms Aortic Valve Aortic Valve Aortic Stenosis V1 0.99m/s AO Mean GR. 3mmHg V2 1.20m/s AO Peak GR. 6mmHg LVOT Diameter 2.0 (1.8-2.4cm) Doppler JACEK 2.59cm2 Tricuspid Valve TR Velocity 2.62m/s RVSP 28mmHg Conclusion Technically good study sinus rhythm. Normal chamber sizes. Valves are normal. EF of 60% with normal RV function. Dopplers normal. No pericardial effusion masses or vegetations.
== END 2025-04-26 14:10 | disposition home or self-care (01) | DRG 93 ==
LOC: ER 20:28 → EDBD 20:28 → OVERFLOW 23:44 → TELE-WESTW 04-25 04:05
PROVIDERS: ADMIT Internal Medicine Geriatric Medicine; ATTEND Internal Medicine Geriatric Medicine
DX: G90.A Postural orthostatic tachycardia syndrome [POTS] (principal); E03.9 Hypothyroidism, unspecified; M81.0 Age-related osteoporosis without current pathological fracture; K21.9 Gastro-esophageal reflux disease without esophagitis; Z96.651 Presence of right artificial knee joint; K44.9 Diaphragmatic hernia without obstruction or gangrene; Z80.3 Family history of malignant neoplasm of breast; Z80.6 Family history of leukemia; Z82.3 Family history of stroke; Z90.710 Acquired absence of both cervix and uterus; Z90.49 Acquired absence of other specified parts of digestive tract; Z79.82 Long term (current) use of aspirin; Z79.899 Other long term (current) drug therapy; Z86.19 Personal history of other infectious and parasitic diseases; Z88.0 Allergy status to penicillin; Z91.041 Radiographic dye allergy status
CPT/HCPCS: 36415; 70450; 71045; 80053; 80061; 81001; 82607; 82746; 83036; 83605; 83735; 84439; 84443; 84480; 84484; 85025; 93005; 93306; 96360; G0378; J2470